=== PATIENT | female | born 1970 | race Caucasian/White ===

== ENCOUNTER 2016-12-17 07:33 | Observation (INO) | payer OTHER ==
[~2016-12-17] VITALS: Ht 160 cm; Wt 98.4 kg
[2016-12-17 08:03] LABS: HEMOGLOBIN 12.4 gm/dl (12.3-15.3); RED BLOOD COUNT 4.3 M/UL (4.00-5.10); WHITE BLOOD COUNT 5.4 K/UL (4.5-11.0)
[2016-12-17 08:52] LABS: BUN/CREATININE RATIO 10 (0-10)
[2016-12-17] MEDS ORDERED: ZESTORETIC 20-1 EACH PO (15:22)
[2016-12-17] MEDS ORDERED: CYMBALTA30 MG PO (15:28)
[2016-12-17] MEDS ORDERED: OMEPRAZOLE20 MG PO (15:28)
[2016-12-17] MEDS ORDERED: TRAZODONE HCL50 MG PO (15:29)
[2016-12-17] MEDS ORDERED: SYNTHROID88 MCG PO (15:31)
[2016-12-17] MEDS ORDERED: VITAMIN D50000 UNIT PO (15:32)
[2016-12-18 06:19] LABS: HEMOGLOBIN 11.9 gm/dl (12.3-15.3); RED BLOOD COUNT 4.14 M/UL (4.00-5.10); WHITE BLOOD COUNT 6.5 K/UL (4.5-11.0)
[2016-12-18 06:39] LABS: BUN/CREATININE RATIO 9 (0-10)
== END 2016-12-18 13:06 | disposition home or self-care (01) ==
LOC: ER1 07:33 → ZEROF 10:15 → MED SURG 4 10:15
PROVIDERS: Emergency Medicine; ADMIT Family Medicine
DX: R55 Syncope and collapse (principal); M54.2 Cervicalgia; I10 Essential (primary) hypertension; F41.9 Anxiety disorder, unspecified; E03.9 Hypothyroidism, unspecified; E66.9 Obesity, unspecified; Z79.899 Other long term (current) drug therapy; Z90.49 Acquired absence of other specified parts of digestive tract; Z98.51 Tubal ligation status; Z98.84 Bariatric surgery status; Z88.0 Allergy status to penicillin
CPT/HCPCS: ECHO; 36415; 36600; 70450; 71010; 72040; 80053; 80307; 81001; 82550; 82553; 82803; 83690; 83874; 84443; 84484; 85025; 85379; 93005; 93306; 93880; 96360; 99285; G0378; J7030

== ENCOUNTER → 2016-12-31 | Outpatient (CLI) | payer OTHER ==
[~2016-12-31] MED LIST: CYMBALTA30 MG PO; OMEPRAZOLE20 MG PO; SYNTHROID88 MCG PO; TRAZODONE HCL50 MG PO; VITAMIN D50000 UNIT PO; ZESTORETIC 20-1 EACH PO
== END ==
LOC: RT 12:47
DX: R55 Syncope and collapse (principal); I10 Essential (primary) hypertension; E03.9 Hypothyroidism, unspecified; F41.9 Anxiety disorder, unspecified; F32.9 Major depressive disorder, single episode, unspecified; E66.9 Obesity, unspecified

== ENCOUNTER → 2022-05-07 | Outpatient (CLI) | payer BC | LOC: ECHO 04-10 12:45 | DX: Z12.31 Encounter for screening mammogram for malignant neoplasm of breast (principal); R01.1 Cardiac murmur, unspecified; I10 Essential (primary) hypertension; R55 Syncope and collapse; I08.1 Rheumatic disorders of both mitral and tricuspid valves | CPT/HCPCS: ECHO; 77063; 77067; 93306 ==